=== PATIENT | male | born 1985 | race Caucasian/White ===

== ENCOUNTER 2018-05-22 01:28 | Emergency (ER) | payer SELFPAY ==
[~2018-05-22] VITALS: Ht 182.9 cm; Wt 95.3 kg
[2018-05-22] MEDS ORDERED: diphenhydrAMINE 25 MG CAP PO ONE ×2 (02:15→02:17)
--- NOTE | 2018-05-22 02:37 | NUR ---
Patient discharged to home in stable conditon. Written and verbal after care instructions given. Patient verbalizes understanding of instructions.
[2018-05-22 02:38] VITALS: BP 116/79
== END 2018-05-22 02:45 | disposition home or self-care (01) ==
LOC: ER 01:32
DX: B34.9 Viral infection, unspecified (principal); L50.9 Urticaria, unspecified
CPT/HCPCS: A4663; Q0163